=== PATIENT | male | born 1945 | race Asian ===

== ENCOUNTER 2019-04-22 10:51 | Emergency (ER) | payer MEDICARE, MEDICAID ==
[~2019-04-22] VITALS: Ht 160 cm; Wt 57.0 kg
[~2019-04-22 10:51] MED LIST: ASPI-1265 PO
[2019-04-22 10:55] VITALS: BP 123/62
[2019-04-22] MEDS ORDERED: triamcinolone acetonide 40mg/ml inj IM ONE (13:05)
== END 2019-04-22 13:30 | disposition home or self-care (01) ==
LOC: ER 10:52
DX: L25.9 Unspecified contact dermatitis, unspecified cause (principal); I10 Essential (primary) hypertension; Z79.82 Long term (current) use of aspirin
CPT/HCPCS: 96372; 99283; J3301